=== PATIENT | female | born 1995 | race Two or more races ===

== ENCOUNTER 2020-03-02 12:07 | Outpatient (CLI) | payer OTHER ==
[2020-03-02 13:01] LABS: APPEARANCE,URINE SLIGHTLY-CLOUDY; BILIRUBIN,URINE NEGATIVE (NEGATIVE); COLOR,URINE YELLOW; GLUCOSE, URINE NEGATIVE (NEGATIVE); KETONES,URINE NEGATIVE (NEGATIVE); LEUKOCYTE ESTERASE,URINE TRACE (NEGATIVE); NITRITE,URINE NEGATIVE (NEGATIVE); PROTEIN,URINE NEGATIVE (NEGATIVE); URINE SPECIFIC GRAVITY 1.004; UROBILINOGEN,URINE NEGATIVE mg/dL (<2.0)
[2020-03-02 13:18] LABS: URINE AMPHETAMINES SCREEN NEGATIVE; URINE BARBITURATES SCREEN NEGATIVE; URINE BENZODIAZEPINES SCREEN NEGATIVE; URINE COCAINE SCREEN NEGATIVE; URINE MARIJUANA (THC) SCREEN NEGATIVE; URINE METHADONE SCREEN NEGATIVE; URINE PHENCYCLIDINE SCREEN NEGATIVE
[2020-03-02 13:33] LABS: UR PRO/CREAT RATIO RESULT 0.9 mg/mg (0.0-0.2); URINE PROTEIN 22.5 mg/dL (<12)
[2020-03-02 13:54] LABS: ABSOLUTE LYMPHOCYTES (AUTO) 1.6 10^3/uL (0.5-4.7); ABSOLUTE MONOCYTES (AUTO) 1.1 10^3/uL (0.1-1.4); ABSOLUTE NEUT (AUTO) 6.4 10^3/uL (1.7-8.2); BASOPHILS % (AUTO) 0.4 % (0-2); EOSINOPHILS % (AUTO) 0.5 % (0-6); HEMATOCRIT 35.9 % (36.0-47.0); HEMOGLOBIN 12.7 g/dL (12.0-15.5); LYMPHOCYTES % (AUTO) 17.1 % (13-45); MEAN CORPUSCULAR HEMOGLOBIN 31.5 pg (27.0-33.4); MEAN CORPUSCULAR HGB CONC 35.4 g/dL (32.0-36.0); MEAN CORPUSCULAR VOLUME 89 fl (80-97); MONOCYTES % (AUTO) 12.1 % (3-13); PLATELET COUNT 180 10^3/uL (150-450); RED BLOOD COUNT 4.03 10^6/uL (3.72-5.28); RED CELL DISTRIBUTION WIDTH 13.7 % (11.5-14.0); SEGMENTED NEUTROPHILS % (AUTO) 69.9 % (42-78); TOTAL CELLS COUNTED % (AUTO) 100 %; WHITE BLOOD COUNT 9.1 10^3/uL (4.0-10.5)
--- NOTE | 2020-03-02 13:59 | Non Stress Test Report ---
Non Stress Test Datetime Report Generated by CPN: 03/02/2020 13:59 DEMOGRAPHIC EGA NST: 34.0 INDICATION Indication for Study (NST) Other: PIH workup VITAL SIGNS Temperature - NST: 97.9 Pulse - NST: 77 RESP - NST: 18 NBPSYS NST: 113 NBPDIA NST: 57 MONITORING Monitor Explained: Monitor Explained; Test Explained; Patient Verbalized Understanding Time on Monitor: 03/02/2020 12:40 Time off Monitor: 03/02/2020 13:57 NST Duration: 77 NST INTERVENTIONS NST Interventions: PO Hydration; Reposition Patient Physician Notified NST: C. Beltre, CNM BABY A: [id number] BABY A Movement : Present Contraction Frequency : none FHR Baseline : 125 Accelerations : 15X15 Decelerations : None Variability : Moderate 6-25bpm NST Review: Meets Criteria for Reactive NST NST Review and Verified By : Kayla Gale, RN NST Results: Reactive NST COMMENTS NST Comments: C. Beltre, CNM on unit reviewed strip NST REPORT Report Trigger: Send Report
[2020-03-02 14:04] LABS: ALBUMIN 2.9 g/dL (3.5-5.0); ALKALINE PHOSPHATASE 163 U/L (38-126); ANION GAP 5 (5-19); ASPARTATE AMINO TRANSFERASE 20 U/L (14-36); BILIRUBIN,TOTAL 0.3 mg/dL (0.2-1.3); BLOOD UREA NITROGEN 10 mg/dL (7-20); CALCIUM 9.1 mg/dL (8.4-10.2); CARBON DIOXIDE 23 mmol/L (22-30); CHLORIDE 104 mmol/L (98-107); GLUCOSE 92 mg/dL (75-110); POTASSIUM 4.1 mmol/L (3.6-5.0); TOTAL PROTEIN 5.4 g/dL (6.3-8.2); URIC ACID 3.9 mg/dL (2.5-6.2)
== END 2020-03-02 14:30 | disposition home or self-care (01) ==
LOC: LC 12:07
PROVIDERS: ATTEND Obstetrics & Gynecology Gynecology
DX: O16.3 Unspecified maternal hypertension, third trimester (principal); Z3A.34 34 weeks gestation of pregnancy
CPT/HCPCS: 36415; 59025; 80053; 80307; 81001; 82570; 83615; 84156; 84550; 85025

== ENCOUNTER 2020-03-11 16:35 | Outpatient (CLI) | payer OTHER ==
--- NOTE | 2020-03-11 17:37 | Non Stress Test Report ---
Non Stress Test Datetime Report Generated by CPN: 03/11/2020 17:37 DEMOGRAPHIC EGA NST: 35.2 VITAL SIGNS Temperature - NST: 98.7 Pulse - NST: 109 RESP - NST: 18 NBPSYS NST: 120 NBPDIA NST: 72 MONITORING Monitor Explained: Monitor Explained; Test Explained; Patient Verbalized Understanding Time on Monitor: 03/11/2020 16:46 Time on Monitor: 03/11/2020 16:48 Time off Monitor: 03/11/2020 17:30 NST Duration: 44 NST INTERVENTIONS NST Interventions: PO Hydration; Reposition Patient Physician Notified NST: Magno BABY A: [id number] BABY A Movement : Present Contraction Frequency : 0 FHR Baseline : 135 Accelerations : 15X15 Decelerations : None Variability : Moderate 6-25bpm NST Review: Meets Criteria for Reactive NST NST Review and Verified By : STEPHANY Parker Results: Reactive NST REPORT Report Trigger: Send Report
== END 2020-03-11 17:35 | disposition home or self-care (01) ==
LOC: LC 16:35
PROVIDERS: ATTEND Student in an Organized Health Care Education/Training Program
DX: O24.419 Gestational diabetes mellitus in pregnancy, unspecified control (principal); Z3A.35 35 weeks gestation of pregnancy; Z88.6 Allergy status to analgesic agent
CPT/HCPCS: 59025

== ENCOUNTER 2020-03-25 18:05 | Inpatient (IN) | payer OTHER ==
[2020-03-25] MEDS ORDERED: MISOPROSTOL 0.2 MG TABLET ONE (18:47)
[2020-03-25] MEDS ORDERED: DINOPROSTONE 10 MG VAGINAL INSERT.SR ONE (18:47)
[2020-03-25] MEDS ORDERED: OXYTOCIN/0.9 % SODIUM CHLORIDE 30 UNIT/500 ML RTUINJ ONE (18:47)
[2020-03-25] MEDS ORDERED: LIDOCAINE 1% INJ-PF (10 MG/ML) 30 ML SDV ONE (18:47)
[2020-03-25] MEDS ORDERED: OXYTOCIN 10 UNIT/ML VIAL ONE (18:47)
[2020-03-25 19:04] LABS: ABSOLUTE MONOCYTES (AUTO) 0.9 10^3/uL (0.1-1.4); ABSOLUTE NEUT (AUTO) 5.9 10^3/uL (1.7-8.2); BASOPHILS % (AUTO) 0.4 % (0-2); EOSINOPHILS % (AUTO) 0.5 % (0-6); HEMOGLOBIN 13.4 g/dL (12.0-15.5); LYMPHOCYTES % (AUTO) 23.1 % (13-45); MEAN CORPUSCULAR HEMOGLOBIN 31.5 pg (27.0-33.4); MEAN CORPUSCULAR HGB CONC 35.3 g/dL (32.0-36.0); MEAN CORPUSCULAR VOLUME 89 fl (80-97); MONOCYTES % (AUTO) 10.1 % (3-13); PLATELET COUNT 178 10^3/uL (150-450); RED BLOOD COUNT 4.26 10^6/uL (3.72-5.28); RED CELL DISTRIBUTION WIDTH 14.1 % (11.5-14.0); SEGMENTED NEUTROPHILS % (AUTO) 65.9 % (42-78); TOTAL CELLS COUNTED % (AUTO) 100 %; WHITE BLOOD COUNT 8.9 10^3/uL (4.0-10.5)
[2020-03-25 19:20] LABS: ALBUMIN 3.2 g/dL (3.5-5.0); ALKALINE PHOSPHATASE 238 U/L (38-126); ANION GAP 6 (5-19); ASPARTATE AMINO TRANSFERASE 24 U/L (14-36); BILIRUBIN,TOTAL 0.2 mg/dL (0.2-1.3); BLOOD UREA NITROGEN 11 mg/dL (7-20); CALCIUM 9.5 mg/dL (8.4-10.2); CARBON DIOXIDE 23 mmol/L (22-30); CHLORIDE 106 mmol/L (98-107); GLUCOSE 133 mg/dL (75-110); POTASSIUM 4.2 mmol/L (3.6-5.0); TOTAL PROTEIN 6.2 g/dL (6.3-8.2); URIC ACID 4.5 mg/dL (2.5-6.2)
[2020-03-25 19:44] LABS: URINE AMPHETAMINES SCREEN NEGATIVE; URINE BARBITURATES SCREEN NEGATIVE; URINE BENZODIAZEPINES SCREEN NEGATIVE; URINE COCAINE SCREEN NEGATIVE; URINE MARIJUANA (THC) SCREEN NEGATIVE; URINE METHADONE SCREEN NEGATIVE; URINE PHENCYCLIDINE SCREEN NEGATIVE
[2020-03-25 19:55] LABS: UR PRO/CREAT RATIO RESULT 0.2 mg/mg (0.0-0.2); URINE CREATININE 240.7 mg/dL (16-327); URINE PROTEIN 42.5 mg/dL (<12)
[2020-03-25] MEDS ORDERED: ONDANSETRON HCL INJ/PF 4 MG/2 ML SDV ONE (20:20)
[2020-03-25 20:48] LABS: CHLAM PCR NOT DETECTED (NOT DETECT)
[2020-03-25] MEDS ORDERED: ONDANSETRON HCL INJ/PF 4 MG/2 ML SDV IV PRN (20:50)
[2020-03-25] MEDS ORDERED: ZOLPIDEM TARTRATE 5 MG TABLET PO ONE (21:03)
[2020-03-25] MEDS ORDERED: ZOLPIDEM TARTRATE 5 MG TABLET ONE (21:04)
[2020-03-25] MEDS ORDERED: NALBUPHINE HCL INJ 10 MG/1 ML AMPULE ONE (21:15)
[2020-03-25 22:24] LABS: APPEARANCE,URINE SLIGHTLY-CLOUDY; BILIRUBIN,URINE NEGATIVE (NEGATIVE); COLOR,URINE YELLOW; GLUCOSE, URINE 150 mg/dL (NEGATIVE); KETONES,URINE TRACE mg/dL (NEGATIVE); LEUKOCYTE ESTERASE,URINE NEGATIVE (NEGATIVE); NITRITE,URINE NEGATIVE (NEGATIVE); PROTEIN,URINE 100 mg/dL (NEGATIVE); URINE SPECIFIC GRAVITY 1.029; UROBILINOGEN,URINE NEGATIVE mg/dL (<2.0)
--- NOTE | 2020-03-25 22:41 | Admission Physical ---
Datetime Report Generated by CPN: 03/25/2020 22:41 CURRENT ADMISSION Chief Complaint: Scheduled Induction of Labor Indication for Induction: Gestational HTN Admit Impression : Term, Intrauterine ; No Active Labor; Intact Membranes Admit Plan: Admit to Unit; Initiate Labor Induction Protocol ALLERGIES Medication Allergies: Yes Medication Allergies: aspirin (03/25/2020) Latex: No Latex Allergies Food Allergies: none Environmental Allergies: none OBSTETRICAL HISTORY EDC: 04/13/2020 00:00 : 1 Para: 0 Term: 0 : 0 SAB: 0 IAB: 0 Livin Gestational Diabetes: Yes Rh Sensitization: No Incompetent Cervix: No LUISANA: No Infertility: No ART Treatment: No Uterine Anomaly: No IUGR: No Hx Previous C/S: No Macrosomia: No Hx Loss/Stillborn: No PIH: Yes Hx : No Placenta Previa/Abruption: No Depression/PP Depression: No PTL/PROM: No Post Hemorrhage: No Current Procedures: Ultrasound; NST Obstetrical History Comments: G1 - Current SEE RECORDS Alcohol: No Marijuana : No Cocaine: No Other Illicit Drugs: No Cigarettes: Former Smoker. [id number] MEDICAL HISTORY Diabetes: Yes Diabetes Type: Gestational Diabetes Blood Transfusion: No Pulmonary Disease (Asthma, TB): No Breast Disease: No Hypertension: Yes [place] Surgery: No Heart Disease: No Hosp/Surgery: No Autoimmune Disorder: No Anesthetic Complications: No Kidney Disease: No Abnormal Pap Smear: Yes Neuro/Epilepsy: No Psychiatric Disorders: No Other Medical Diseases: No Hepatitis/Liver Disease: No Significant Family History: No Varicosities/Phlebitis: No Trauma/Violence : No Thyroid Dysfunction: No Medical History Comments: Abnormal PAP - 10/2019 INFECTIOUS HISTORY Gonorrhea: No Genital Herpes: No Chlamydia: No Tuberculosis: No Syphilis: No Hepatitis: No HIV/AIDS Exposure: No Rash or Viral Illness: No HPV: No PHYSICAL EXAM General: Normal HEENT: Normal Neurologic: Normal Thyroid: Deferred Heart: Normal Lungs: Normal Breast: Deferred Back: Normal Abdomen: Normal Genitourinary Exam: Normal Extremities: Normal DTRs: Normal Pelvic Type: Adequate Vital Signs: Reviewed VAGINAL EXAM Dilatation: 1 Effacement: 50 Station: -3 Contraction Comments: rare MEMBRANES Membranes: Intact FETUS A EGA: 37.2 Monitoring: External US FHR- Baseline: 120 Variability: Moderate 6-25bpm Accelerations: 15X15 Decelerations: None Presentation: Vertex Admit Comment: 24yo at 37+2ega presents for IOL due to GHTN. also c/b A1GDM. LGSIL pap smear. 24 hr UTP normal. GBS pending in office. GBS repeated and GC/CT done. Will given PCN in case. Hopefully GBS in office will be done tomorrow. Cooks catheter placed at 2000 and pitocin initiated. Anticipate . PLANS FOR LABOR AND DELIVERY Labor and Delivery: Plan Pain Management: Medications; Epidural Feeding Preference: Breast Benefit of Breast Feed Discussed: Yes Circumcision: N/A INFORMED CONSENT Informed Consent Obtained: Vaginal Delivery; Induction of Labor; Risks, Benefits and Alternatives Discussed Signature: with User ID: [email or web address]
[2020-03-25] MEDS ORDERED: PENICILLIN G-K 5 MILLION UNIT VIAL ONE (22:54)
[2020-03-25] MEDS ORDERED: PENICILLIN G POTASSIUM 5,000,000 UNIT in DEXTROSE 5%-WATER 100 ML IV ONE (23:59)
[2020-03-25] MEDS ORDERED: NALBUPHINE HCL INJ 10 MG/1 ML AMPULE INJ ONE (23:59)
[2020-03-26] MEDS ORDERED: PENICILLIN G-K 5 MILLION UNIT VIAL ONE ×2 (02:59→06:33)
[2020-03-26] MEDS: PENICILLIN G POTASSIUM 2,500,000 UNIT in DEXTROSE 5%-WATER 50 ML IV SCH ×5 (03:17→18:58)
[2020-03-26] MEDS ORDERED: EPHEDRINE SULFATE INJ 50 MG/1 ML AMPULE ONE ×2 (07:51→22:21)
[2020-03-26] MEDS ORDERED: BUPIVACAINE HCL 0.25 % INJ/PF (2.5 MG/1 ML) 30 ML VIAL ONE (07:52)
[2020-03-26] MEDS ORDERED: FENTANYL/BUPIVACAINE/NS/PF 300 MCG/150 ML RTUINJ EPI ONE (07:52)
[2020-03-26] MEDS ORDERED: MAG HYDROX/AL HYDROX/SIMETH SUSP 30 ML UDCUP PO ONE (07:56)
[2020-03-26] MEDS ORDERED: MAG HYDROX/AL HYDROX/SIMETH SUSP 30 ML UDCUP ONE (07:57)
[2020-03-26] MEDS ORDERED: OXYTOCIN/0.9 % SODIUM CHLORIDE 30 UNIT/500 ML RTUINJ IV PRN ×2 (12:50→23:03)
[2020-03-26] MEDS ORDERED: ACETAMINOPHEN 325 MG TABLET PO ONE (14:55)
[2020-03-26] MEDS ORDERED: ACETAMINOPHEN 325 MG TABLET ONE (14:57)
[2020-03-26] MEDS ORDERED: CEFAZOLIN INJ 1 GM VIAL ONE (21:50)
[2020-03-26] MEDS ORDERED: CITRIC ACID/SODIUM CITRATE ORAL SOLN 15 ML UDCUP ONE (21:50)
[2020-03-26] MEDS ORDERED: LIDOCAINE 2% INJ-PF (20 MG/ML) 10 ML AMPUL ONE (21:51)
[2020-03-26] MEDS ORDERED: ONDANSETRON HCL INJ/PF 4 MG/2 ML SDV ONE (22:21)
[2020-03-26] MEDS ORDERED: OXYTOCIN 10 UNIT/ML VIAL ONE (22:21)
[2020-03-26] MEDS ORDERED: FENTANYL CITRATE INJ/PF 100 MCG/2 ML AMPUL ONE ×2 (22:21→23:53)
[2020-03-26] MEDS ORDERED: KETOROLAC TROMETHAMINE INJ/PF 30 MG/1 ML SDV ONE (22:21)
[2020-03-26] MEDS ORDERED: OXYTOCIN/0.9 % SODIUM CHLORIDE 30 UNIT/500 ML RTUINJ ONE (22:21)
[2020-03-26] MEDS ORDERED: ACETAMINOPHEN 1,000 MG/100 ML RTUPB IV ONE (22:21)
[2020-03-26] MEDS ORDERED: MIDAZOLAM 2 MG/2 ML INJ ONE (22:21)
[2020-03-26] MEDS ORDERED: RINGERS SOLUTION,LACTATED 1,000 ML IV PRN (23:03)
[2020-03-26] MEDS ORDERED: ACETAMINOPHEN 1,000 MG/100 ML RTUPB IV PRN (23:03)
[2020-03-26] MEDS ORDERED: DIPH/PERTUSS(ACELL)/TETANUS VAC/PF 0.5 ML SYR (>=10YO) IM PRN (23:03)
[2020-03-26] MEDS ORDERED: MEASLES,MUMPS&RUBELLA VACC/PF 0.5 ML VIAL SUBCUT PRN (23:03)
[2020-03-26] MEDS ORDERED: SIMETHICONE 80 MG TAB.CHEW PO PRN (23:03)
[2020-03-26] MEDS ORDERED: PROMETHAZINE HCL INJ 25 MG/1 ML VIAL IV PRN (23:03)
[2020-03-26] MEDS ORDERED: ACETAMINOPHEN 325 MG TABLET PO PRN (23:03)
--- NOTE | 2020-03-26 23:12 | Operative Report ---
Operative Report DATE OF SURGERY: 03/26/20 PREOPERATIVE DIAGNOSIS: IUP 37 weeks preeclampsia failure to descend and progre ss POSTOPERATIVE DIAGNOSIS: Same OPERATION: Very low transverse section delivery of viable female infant SURGEON: GASPER RUBI ANESTHESIA: Epidural TISSUE REMOVED OR ALTERED: Placenta ESTIMATED BLOOD LOSS: About 1000 cc PROCEDURE: The patient was taken to the operating room where spinal anesthesia was obtained and found to be adequate. She was then prepped and draped in the normal sterile fashion and placed in the dorsal supine position with a leftward tilt. A Pfannenstiel skin incision was then made and carried through to the underlying layers of the fascia with the scalpel. The fascia was incised in the midline and the incision extended laterally with the Valles scissors. The superior aspect of the fascial incision was then grasped with Naomi clamps elevated and the underlying rectus muscles dissected off bluntly. Attention was then turned to the inferior aspect of the fascial incision which in a similar fashion was grasped, tented up with Catalina clamps, and the rectus muscles dissected off bluntly. The rectus muscles were then in the midline and the peritoneum at the amount identified and entered bluntly. The peritoneal incision was then extended superiorly and inferiorly with good visualization of the bladder. [The bladder blade was inserted and the vesicouterine peritoneum identified grasped with Burmese pickups and entered sharply with the Metzenbaum scissors. His incision was then extended laterally with the Metzenbaum scissors and a bladder flap created digitally. The bladder blade was then reinserted and the lower uterine segment incised in a transverse fashion with the scalpel. The uterine incision was then extended bluntly. The bladder blade was removed and the 's head was delivered from cephalic presentation atraumatically. The nose and mouth were suctioned and the cord doubly clamped and cut. And the infant was handed off to waiting pediatricians. The placenta was then delivered manully and the uterus exteriorized and cleared of all clots and debris. The uterine incision was then repaired with 1-0 Vicryl in a running locked fashion. A second layer of the same suture was used to obtain hemostasis via imbrication of the initial layer. The uterus was returned to the patient's abdomen. The gutters were cleared of all clots and debris. All operative sites were noted to be hemostatic. The fascia was reapproximated with 0 Vicryl in a running fashion from each lateral edge to the midline. The patient tolerated the procedure well. Sponge lap needle and instrument counts are correct -2. 2 g of Ancef were given prior to skin incision. The patient was taken to the recovery area awake and in stable condition.
--- NOTE | 2020-03-27 00:42 | Delivery Summary ---
Del Sum A-C Datetime Report Generated by CPN: 03/27/2020 00:42 DELIVERY PERSONNEL DELIVERY PERSONNEL: [id number] Delivery Doctor:: Omar Ramirez MD ARCHITECTURAL ENGINEER:: Ruben Amador ARCHITECTURAL ENGINEER Labor and Delivery Nurse:: Jazzy Renner RN Appliance Installer:: Angelica Barnhart RN Neonatal Nurse Practitioner:: STEVE Jacobsen Nursery Nurse:: lupis Lino RN Assembler Chassis/FURNACE FIRER: ST Dong Assembler Chassis/FURNACE FIRER: Roxy Marshall, DROP COUNT ASSOCIATE MATERNAL INFORMATION Delivery Anesthesia: Epidural Medications After Delivery: Pitocin Bolus-Please Comment; Pitocin 30 Units in 500ml NS/D5W Delivery QBL: 460 Maternal Complications: None; Other Other Maternal Complications: GDM and Preeclampsia LABOR SUMMARY EDC: 04/13/2020 00:00 No. Babies in Womb: 1 Attempted: No Labor Anesthesia: Epidural LABOR INFORMATION Reason for Induction: Gestational Hypertension; Maternal Diabetes Onset of Labor: 03/26/2020 07:24 Cervical Ripening Agents: Other Other Ripening Agents: Cooks cath Oxytocin: Induction Group B Beta Strep: Unknown Antibiotics # of Doses: 6 Antibiotics Time of Last Dose: 1857 Name of Antibiotic Given: PCN G Steroids Given: None Reason Steroids Not Administered: Not Applicable MEMBRANES Membranes Rupture Method: Artificial Rupture of Membranes: 03/26/2020 07:24 Length of Rupture (hr): 15.25 Amniotic Fluid Color: Clear Amniotic Fluid Amount: Moderate Amniotic Fluid Odor: Normal STAGES OF LABOR Stage 3 hr: 0 Stage 3 min: 1 Total Time in Labor hr: 15 Total Time in Labor min: 16 VAGINAL DELIVERY Episiotomy: None Laceration #1: None Laceration Extension #1: N/A Laceration Repair: Not Applicable Sponge Count Correct: N/A CSECTION DELIVERY Primary Indication: Secondary Arrest of Dilatation CSection Urgency: Non-Scheduled CSection Incidence: Primary Labor: Labor Elective: Nonelective CSection Incision: Lower Uterine Transverse BABY A INFORMATION Infant Delivery Date/Time: 03/26/2020 22:39 Method of Delivery: Nurse Controlled Delivery: No Born in Route : No : N/A Forceps: N/A Vacuum Extraction: N/A Shoulder Dystocia : No PRESENTATION/POSITION BABY A Presentation: Cephalic Breech Presentation: N/A PLACENTA INFORMATION BABY A Placenta Delivery Time : 03/26/2020 22:40 Placenta Method of Delivery: Manual Removal Placenta Status: Delivered SCORES BABY A Heart Rate 1 min: >100 bpm Resp Effort 1 min: Good Cry Reflex Irritability 1 min: Cough or Sneeze or Pulls Away Muscle Tone 1 min: Active Motion Color 1 min: Blue/Pale Resuscitation Effort 1 min: Tactile Stimulation SCORE 1 MIN: 8 Heart Rate 5 min: >100 bpm Resp Effort 5 min: Good Cry Reflex Irritability 5 min: Cough or Sneeze or Pulls Away Muscle Tone 5 min: Active Motion Color 5 min: Body [place], Extremities Blue Resuscitation Effort 5 min: Tactile Stimulation SCORE 5 MIN: 9 INFANT INFORMATION BABY A Gestational Age at Delivery: 37.3 Gestational Status: Early Term- 37- 38.6 Weeks Outcome : Liveborn Condition : Stable Sex: Female IDENTIFICATION BABY A ID Band Number: [id number] Mother's Name Verified: Yes RN Verifying Infant: Davey, A. RN Additional Verifying Personnel: Zurdo, Von. RN WEIGHT/LENGTH BABY A Birthweight (gm): 3080 Infant Weight (lb): 6 Weight (oz): 13 CORD INFORMATION BABY A No. Cord Vessels: 3 Nuchal Cord : N/A Cord Blood Taken: Yes-For Storage (Mom's Blood type +) Suction: Mouth; Nose ASSESSMENT BABY A Infant Complications: None Physical Findings at Delivery: Within Normal Limits Physical Findings- Other: see initial nursery assessment Infant Respirations: Appears Normal Uph[employer]/ALS Called : No Care By: Wilson Lino RN Transferred To: Nursery BABY B INFORMATION : N/A SIGNATURES Signature: with User ID: [email or web address]
[2020-03-27] MEDS: MORPHINE SULFATE 10 MG/ML INJ IM PRN ×4 (01:22→21:25)
[2020-03-27] MEDS: PENICILLIN G POTASSIUM 2,500,000 UNIT in DEXTROSE 5%-WATER 50 ML IV SCH (01:37)
[2020-03-27] MEDS: KETOROLAC TROMETHAMINE INJ/PF 30 MG/1 ML SDV IV SCH ×3 (05:44→21:48)
[2020-03-27 07:25] LABS: HEMATOCRIT 27.1 % (36.0-47.0); MEAN CORPUSCULAR HEMOGLOBIN 31.5 pg (27.0-33.4); MEAN CORPUSCULAR HGB CONC 34.7 g/dL (32.0-36.0); MEAN CORPUSCULAR VOLUME 91 fl (80-97); PLATELET COUNT 118 10^3/uL (150-450); RED BLOOD COUNT 2.99 10^6/uL (3.72-5.28); RED CELL DISTRIBUTION WIDTH 13.7 % (11.5-14.0); WHITE BLOOD COUNT 12.4 10^3/uL (4.0-10.5)
[2020-03-27 07:26] LABS: HEMOGLOBIN 9.4 g/dL (12.0-15.5)
[2020-03-27] MEDS: DOCUSATE SODIUM 100 MG CAPSULE PO SCH ×2 (10:41→17:31)
[2020-03-27] MEDS: PRENATAL VITAMIN W DHA CAPSULE PO SCH (10:41)
--- NOTE | 2020-03-27 10:51 | PDOC PROGRESS REPORT ---
Subjective-OB Progress Note for:: 03/27/20 Subjective: sleeping in bed, hsb at bs, no c/o, plans to breastfeed, pain under control Physical Exam (OB) Vital Signs: Temp Pulse Resp BP Pulse Ox 97.4 F 97 18 130/83 H 97 03/27/20 07:44 03/27/20 07:44 03/27/20 07:44 03/27/20 07:44 03/27/20 07:44 Intake & Output 03/26/20 03/27/20 03/28/20 06:59 06:59 06:59 Intake Total 150 Output Total 200 Balance -50 Weight 94.3 kg - PIH/Pre-Eclampsia DTR's: 2 + Clonus: Negative Headache: Absent Epigastric Pain: No Visual Changes: No - Dressing Removed: No Incision: Dressing Closure Type: Pressure - Lochia Lochia Amount: Small 10-25 ml Lochia Color: Rubra/Red - Abdomen Description: Tender, Soft Hernia Present: No Fundal Description: Firm, Midline Fundal Height: u/u - u/2 Objective-Diagnostic Laboratory: 03/27/20 06:46 03/25/20 18:38 03/27/20 06:46 WBC 12.4 H RBC 2.99 L Hgb 9.4 L D Hct 27.1 L MCV 91 MCH 31.5 MCHC 34.7 RDW 13.7 Plt Count 118 L Assessment and Plan(PN) - Assessment and Plan (1) Gestational diabetes mellitus (GDM) in childbirth, diet controlled Is this a current diagnosis for this admission?: Yes (2) Gestational hypertension Qualifiers: Trimester: second trimester Qualified Code(s): O13.2 - Gestational [-induced] hypertension without significant proteinuria, second trimester Is this a current diagnosis for this admission?: Yes (3) S/P primary low transverse Is this a current diagnosis for this admission?: Yes - Time Spent with Patient Time with patient: Less than 15 minutes Medications reviewed and adjusted accordingly: Yes - Disposition Anticipated Discharge: Home Within: within 36 hours
[2020-03-27] MEDS: OXYCODONE-ACETAMINOPHEN 5-325 MG TABLET PO PRN ×2 (14:42→22:27)
[2020-03-27 23:33] LABS: HEMATOCRIT 27.2 % (36.0-47.0); HEMOGLOBIN 9.4 g/dL (12.0-15.5); MEAN CORPUSCULAR HEMOGLOBIN 31.3 pg (27.0-33.4); MEAN CORPUSCULAR HGB CONC 34.5 g/dL (32.0-36.0); MEAN CORPUSCULAR VOLUME 91 fl (80-97); PLATELET COUNT 115 10^3/uL (150-450); WHITE BLOOD COUNT 11.9 10^3/uL (4.0-10.5)
[2020-03-28] MEDS: IBUPROFEN 800 MG TABLET PO SCH ×4 (00:11→17:07)
[2020-03-28] MEDS: OXYCODONE-ACETAMINOPHEN 5-325 MG TABLET PO PRN ×3 (03:50→18:36)
[2020-03-28] MEDS: KETOROLAC TROMETHAMINE INJ/PF 30 MG/1 ML SDV IV SCH ×3 (05:25→21:34)
--- NOTE | 2020-03-28 09:34 | PDOC PROGRESS REPORT ---
Subjective-OB Progress Note for:: 03/28/20 Subjective: holding baby, hsb in room, , continues to have pain, OOB walking, passing gas, voiding Physical Exam (OB) Vital Signs: Temp Pulse Resp BP Pulse Ox 97.7 F 96 16 129/79 H 98 03/28/20 08:00 03/28/20 08:00 03/28/20 08:00 03/28/20 08:00 03/28/20 08:00 Intake & Output 03/27/20 03/28/20 03/29/20 06:59 06:59 06:59 Intake Total 150 1100 Output Total 200 1100 Balance -50 0 - PIH/Pre-Eclampsia DTR's: 2 + Clonus: Negative Headache: Absent Epigastric Pain: No Visual Changes: No - Dressing Removed: No - previously removed Incision: Well Approximated Closure Type: Pressure - Lochia Lochia Amount: Scant < 10 ml Lochia Color: Rubra/Red - Abdomen Description: Soft Hernia Present: No Fundal Description: Firm, Midline Fundal Height: u/u - u/2 Objective-Diagnostic Laboratory: 03/27/20 23:27 03/25/20 18:38 03/27/20 23:27 WBC 11.9 H RBC 3.00 L Hgb 9.4 L Hct 27.2 L MCV 91 MCH 31.3 MCHC 34.5 RDW 14.0 Plt Count 115 L 03/25/20 18:21 Vaginal/Anorectal Group B Streptococcus Culture - Final NO GROUP B STREPTOCOCCUS RECOVERED Assessment and Plan(PN) - Assessment and Plan (1) Gestational diabetes mellitus (GDM) in childbirth, diet controlled Is this a current diagnosis for this admission?: Yes (2) Gestational hypertension Qualifiers: Trimester: second trimester Qualified Code(s): O13.2 - Gestational [-induced] hypertension without significant proteinuria, second trime ster Is this a current diagnosis for this admission?: Yes (3) S/P primary low transverse Is this a current diagnosis for this admission?: Yes - Time Spent with Patient Time with patient: Less than 15 minutes Medications reviewed and adjusted accordingly: Yes - Disposition Anticipated Discharge: Home Within: within 24 hours
[2020-03-28] MEDS: DOCUSATE SODIUM 100 MG CAPSULE PO SCH ×2 (09:51→17:07)
[2020-03-28] MEDS: PRENATAL VITAMIN W DHA CAPSULE PO SCH (09:51)
[2020-03-29] MEDS: IBUPROFEN 800 MG TABLET PO SCH ×3 (00:15→12:05)
[2020-03-29] MEDS: OXYCODONE-ACETAMINOPHEN 5-325 MG TABLET PO PRN ×2 (01:11→08:18)
[2020-03-29] MEDS: KETOROLAC TROMETHAMINE INJ/PF 30 MG/1 ML SDV IV SCH (05:29)
[2020-03-29 07:48] VITALS: BP 121/71
[2020-03-29] MEDS: PRENATAL VITAMIN W DHA CAPSULE PO SCH (09:13)
[2020-03-29] MEDS: DOCUSATE SODIUM 100 MG CAPSULE PO SCH (09:13)
--- NOTE | 2020-03-29 09:43 | PDOC DISCHARGE SUMMARY ---
Impression - Admit/DC Date/PCP Admission Date/Primary Care Provider: 03/25/20 18:05 Discharge Date: 03/29/20 - Discharge Diagnosis (1) Gestational diabetes mellitus (GDM) in childbirth, diet controlled Is this a current diagnosis for this admission?: Yes (2) Gestational hypertension Is this a current diagnosis for this admission?: Yes (3) S/P primary low transverse Is this a current diagnosis for this admission?: Yes - Additional Information Resuscitation Status: Full Code Discharge Diet: Regular Discharge Activity: Balance Activity w/Rest, No Lifting Over 10 Pounds, No Lifting/Push/Pulling, Pelvic Rest, No tub bath Home Medications: Vits96/Iron Fum/Folic [ Tablet] 1 each PO DAILY 03/11/20 HPI Gestational Age: 37.2 Reason(s) for Admission: Induction of Labor, PIH, Gestional Diabetes Procedures: NST Intrapartum Procedure(s): : Low Cervical, Transverse Results Laboratory Results: WBC 11.9 10^3/uL (4.0-10.5) H 03/27/20 23:27 RBC 3.00 10^6/uL (3.72-5.28) L 03/27/20 23:27 Hgb 9.4 g/dL (12.0-15.5) L 03/27/20 23:27 Hct 27.2 % (36.0-47.0) L 03/27/20 23:27 MCV 91 fl (80-97) 03/27/20 23:27 MCH 31.3 pg (27.0-33.4) 03/27/20 23:27 MCHC 34.5 g/dL (32.0-36.0) 03/27/20 23:27 RDW 14.0 % (11.5-14.0) 03/27/20 23:27 Plt Count 115 10^3/uL (150-450) L 03/27/20 23:27 Lymph % (Auto) 23.1 % (13-45) 03/25/20 18:38 [place] % (Auto) 10.1 % (3-13) 03/25/20 18:38 Eos % (Auto) 0.5 % (0-6) 03/25/20 18:38 Baso % (Auto) 0.4 % (0-2) 03/25/20 18:38 Absolute Neuts (auto) 5.9 10^3/uL (1.7-8.2) 03/25/20 18:38 Absolute Lymphs (auto) 2.0 10^3/uL (0.5-4.7) 03/25/20 18:38 Absolute Monos (auto) 0.9 10^3/uL (0.1-1.4) 03/25/20 18:38 Absolute Eos (auto) 0.0 10^3/uL (0.0-0.6) 03/25/20 18:38 Absolute Basos (auto) 0.0 10^3/uL (0.0-0.2) 03/25/20 18:38 Seg Neutrophils % 65.9 % (42-78) 03/25/20 18:38 Sodium 135.4 mmol/L (137-145) L 03/25/20 18:38 Potassium 4.2 mmol/L (3.6-5.0) 03/25/20 18:38 Chloride 106 mmol/L (98-107) 03/25/20 18:38 Carbon Dioxide 23 mmol/L (22-30) 03/25/20 18:38 Anion Gap 6 (5-19) 03/25/20 18:38 BUN 11 mg/dL (7-20) 03/25/20 18:38 Creatinine 0.68 mg/dL (0.52-1.25) 03/25/20 18:38 Est GFR ( Amer) > 60 (>60) 03/25/20 18:38 Est GFR (MDRD) Non-Af > 60 (>60) 03/25/20 18:38 Glucose 133 mg/dL (75-110) H 03/25/20 18:38 Uric Acid 4.5 mg/dL (2.5-6.2) 03/25/20 18:38 Calcium 9.5 mg/dL (8.4-10.2) 03/25/20 18:38 Total Bilirubin 0.2 mg/dL (0.2-1.3) 03/25/20 18:38 Direct Bilirubin 0.0 mg/dL (0.0-0.4) 03/25/20 18:38 Neonat Total Bilirubin Not Reportable 03/25/20 18:38 Neonat Direct Bilirubin Not Reportable 03/25/20 18:38 Neonat Indirect Bili Not Reportable 03/25/20 18:38 AST 24 U/L (14-36) 03/25/20 18:38 ALT 14 U/L (<35) 03/25/20 18:38 Alkaline Phosphatase 238 U/L (38-126) H 03/25/20 18:38 Lactate Dehydrogenase 162 U/L (120-246) 03/25/20 18:38 Total Protein 6.2 g/dL (6.3-8.2) L 03/25/20 18:38 Albumin 3.2 g/dL (3.5-5.0) L 03/25/20 18:38 Urine Color YELLOW 03/25/20 18:35 Urine Appearance SLIGHTLY-CLOUDY 03/25/20 18:35 Urine pH 6.0 (5.0-9.0) 03/25/20 18:35 Ur Specific Wisdom 1.029 03/25/20 18:35 Urine Protein 100 mg/dL (NEGATIVE) H 03/25/20 18:35 Urine Glucose (UA) 150 mg/dL (NEGATIVE) H 03/25/20 18:35 Urine Ketones TRACE mg/dL (NEGATIVE) H 03/25/20 18:35 Urine Blood NEGATIVE (NEGATIVE) 03/25/20 18:35 Urine Nitrite NEGATIVE (NEGATIVE) 03/25/20 18:35 Urine Bilirubin NEGATIVE (NEGATIVE) 03/25/20 18:35 Urine Urobilinogen NEGATIVE mg/dL (<2.0) 03/25/20 18:35 Ur Leukocyte Esterase NEGATIVE (NEGATIVE) 03/25/20 18:35 Urine WBC (Auto) 4 /HPF 03/25/20 18:35 Urine RBC (Auto) 1 /HPF 03/25/20 18:35 Urine Bacteria (Auto) TRACE /HPF 03/25/20 18:35 Squamous Epi Cells Auto 1 /HPF 03/25/20 18:35 Urine Mucus (Auto) RARE /LPF 03/25/20 18:35 Urine Creatinine 240.7 mg/dL (16-327) 03/25/20 18:55 Protein/Creatinin Ratio 0.2 mg/mg (0.0-0.2) 03/25/20 18:55 Urine Total Protein 42.5 mg/dL (<12) H 03/25/20 18:55 Urine Ascorbic Acid NEGATIVE (NEGATIVE) 03/25/20 18:35 Urine Opiates Screen NEGATIVE 03/25/20 18:35 Urine Methadone Screen NEGATIVE 03/25/20 18:35 Ur Barbiturates Screen NEGATIVE 03/25/20 18:35 Ur Phencyclidine Scrn NEGATIVE 03/25/20 18:35 Ur Amphetamines Screen NEGATIVE 03/25/20 18:35 U Benzodiazepines Scrn NEGATIVE 03/25/20 18:35 Urine Cocaine Screen NEGATIVE 03/25/20 18:35 U Marijuana (THC) Screen NEGATIVE 03/25/20 18:35 RPR NONREACTIVE (NONREACTIVE) 03/25/20 18:38 Chlamydia DNA (PCR) NOT DETECTED (NOT DETECT) 03/25/20 18:35 N.gonorrhoeae DNA (PCR) NOT DETECTED (NOT DETECT) 03/25/20 18:35 Blood Type A POSITIVE 03/25/20 18:38 Antibody Screen NEGATIVE 03/25/20 18:38 Plan Plan of Treatment: f/u at [facility] for incision check 1 wk and [facility]PC[facility] 4 wks Time Spent: Less than 30 Minutes
== END 2020-03-29 13:27 | disposition home or self-care (01) | DRG 788 ==
LOC: LR 18:05 → 2S 03-27 01:19
PROVIDERS: ADMIT Student in an Organized Health Care Education/Training Program; ATTEND Student in an Organized Health Care Education/Training Program
PROC: 10D00Z1 Extraction of Products of Conception, Low, Open Approach (ICD-10-PCS; principal; 2020-03-26)
PROC: 3E033VJ Introduction of Other Hormone into Peripheral Vein, Percutaneous Approach (ICD-10-PCS; 2020-03-26)
PROC: 10907ZC Drainage of Amniotic Fluid, Therapeutic from Products of Conception, Via Natural or Artificial Opening (ICD-10-PCS; 2020-03-26)
DX: O13.4 Gestational [pregnancy-induced] hypertension without significant proteinuria, complicating childbirth (principal); O24.420 Gestational diabetes mellitus in childbirth, diet controlled; O32.4XX0 Maternal care for high head at term, not applicable or unspecified; O62.0 Primary inadequate contractions; Z3A.37 37 weeks gestation of pregnancy; Z37.0 Single live birth; Z88.6 Allergy status to analgesic agent; Z87.891 Personal history of nicotine dependence
CPT/HCPCS: 1967; 1968; 36415; 80053; 80307; 81001; 82570; 83615; 84156; 84550; 85025; 85027; 86592; 86850; 86900; 86901; 87081; 87491; 87591; 90715; 94760; 94799; 99140; C1726; J0131; J0690; J1885; J2250; J2270; J2300; J2405; J2540; J2590; J3010; J3490; J7060